=== PATIENT | female | born 1960 | race Hispanic/Latino ===

== ENCOUNTER 2019-01-13 09:16 | Emergency (ER) | payer BC ==
[2019-01-13 10:12] LABS: Absolute Monocytes 0.8 K/uL (0.1-1.3); Absolute Neutrophil 5.7 K/uL (1.8-8.0); Basophils % 0.5 % (0-1.3); Eosinophils % 0.5 % (0-4.4); Hematocrit 44.7 % (36.0-45.0); Lymphocytes % 23.8 % (15.3-44.8); MPV 9.6 fL (7.6-11.3); Monocytes % 9.4 % (3.3-12.3); RBC Red Blood Cell Count 4.76 M/uL (3.86-4.86)
[2019-01-13 10:16] LABS: Protime INR 1.03
[2019-01-13 10:38] LABS: ALT/SGPT 35 U/L (12-78); AST/SGOT 14 U/L (15-37); Albumin 3.9 g/dL (3.4-5.0); Alkaline Phosphatase 96 U/L (45-117); BUN Blood Urea Nitrogen 15 mg/dL (7-18); Bicarbonate 29 mmol/L (21-32); Bilirubin Direct 0.2 mg/dL (0-0.2); Bilirubin Total 0.5 mg/dL (0.2-1.0); Glucose Level 116 mg/dL (74-106); Magnesium 2.2 mg/dL (1.8-2.4); NT PRO-BNP 254 pg/mL (<125); Potassium 3.6 mmol/L (3.5-5.1); Protein, Total 7.3 g/dL (6.4-8.2); Sodium Level 143 mmol/L (136-145); Troponin (Emerg Dept Use Only) < 0.02 ng/mL (0.0-0.045)
--- NOTE | 2019-01-13 10:41 | RAD REPORT ---
EXAM DESCRIPTION: Taisha Single View01/13/2019 10:30 am CLINICAL HISTORY: Palpitations and hypertension COMPARISON: 2016 FINDINGS: The lungs appear clear of acute infiltrate. The heart is borderline enlarged. The aorta i s tortuous/ectatic IMPRESSION: No acute abnormalities displayed
--- NOTE | 2019-01-13 11:35 | EDPHYS ---
Physician Documentation [facility] Name: Kevin Gary Age: 58 yrs Sex: Female : 1960 Arrival Date: 01/13/2019 Time: 09:23 Bed 5 Private MD: ED Physician Andreas Jefferson HPI: 01/13 10:00 This 58 yrs old Female presents to ER via Ambulatory with complaints of High pm1 Blood Pressure. 10:00 The patient presents with a history of heart racing. Context: The symptoms occur at pm1 rest. Onset: The symptoms/episode began/occurred 1 month(s) ago. Duration: The patient or guardian reports multiple episodes, typically experiences palpitations in the AM. Modifying factors: The symptoms are aggravated by nothing. The symptoms are alleviated by nothing. Associated signs and symptoms: Pertinent negatives: chest pain, cough, fever, nausea, SOB, syncope, near-syncope, vomiting. Severity of symptoms: Pain is currently a 0 / 10. The patient has not recently seen a physician. Historical: - Allergies: 09:37 No Known Allergies; ss - Home Meds: 09:37 pravastatin 20 mg oral tab 1 tab once daily [Active]; metoprolol tartrate 50 mg Oral ss tab 1 tab once daily [Active]; prednisone 20 mg Oral tab once daily [Active]; - PMHx: 09:37 Hypertension; ss - PSHx: 09:37 hemorrhoid sx; bone spur removed from left foot; ss - Immunization history:: Adult Immunizations up to date. - Social history:: Smoking status: Patient/guardian denies using tobacco. - Ebola Screening: : Patient denies exposure to infectious person Patient denies travel to an Ebola-affected area in the 21 days before illness onset. ROS: 10:00 Constitutional: Negative for fever, chills, and weight loss, Eyes: Negative for injury, pm1 pain, redness, and discharge, ENT: Negative for injury, pain, and discharge, Neck: Negative for injury, pain, and swelling. 10:00 Respiratory: Negative for shortness of breath, cough, wheezing, and pleuritic chest pain, Abdomen/GI: Negative for abdominal pain, nausea, vomiting, diarrhea, and constipation, Back: Negative for injury and pain, : Negative for injury, bleeding, discharge, and swelling, MS/Extremity: Negative for injury and deformity, Skin: Negative for injury, rash, and discoloration, Neuro: Negative for headache, weakness, numbness, tingling, and seizure. 10:00 Cardiovascular: Positive for palpitations, Negative for chest pain, edema, orthopnea. Exam: 10:00 Sinus tachycardia 103 BPM pm1 10:00 Constitutional: This is a well developed, well nourished patient who is awake, alert, pm1 and in no acute distress. Head/Face: Normocephalic, atraumatic. Eyes: Pupils equal round and reactive to light, extra-ocular motions intact. Lids and lashes normal. Conjunctiva and sclera are non-icteric and not injected. Cornea within normal limits. Periorbital areas with no swelling, redness, or edema. ENT: Nares patent. No nasal discharge, no septal abnormalities noted. Tympanic membranes are normal and external auditory canals are clear. Oropharynx with no redness, swelling, or masses, exudates, or evidence of obstruction, uvula midline. Mucous membranes moist. Neck: Trachea midline, no thyromegaly or masses palpated, and no cervical lymphadenopathy. Supple, full range of motion without nuchal rigidity, or vertebral point tenderness. No Meningismus. Chest/axilla: Normal chest wall appearance and motion. Nontender with no deformity. No lesions are appreciated. Cardiovascular: Regular rate and rhythm with a normal S1 and S2. No gallops, murmurs, or rubs. Normal PMI, no JVD. No pulse deficits. Respiratory: Lungs have equal breath sounds bilaterally, clear to auscultation and percussion. No rales, rhonchi or wheezes noted. No increased work of breathing, no retractions or nasal flaring. Abdomen/GI: Soft, non-tender, with normal bowel sounds. No distension or tympany. No guarding or rebound. No evidence of tenderness throughout. Back: No spinal tenderness. No costovertebral tenderness. Full range of motion. Skin: Warm, dry with normal turgor. Normal color with no rashes, no lesions, and no evidence of cellulitis. MS/ Extremity: Pulses equal, no cyanosis. Neurovascular intact. Full, normal range of motion. 10:00 Neuro: Orientation: is normal, Motor: is normal, moves all fours. Vital Signs: 09:37 BP 154 / 83; Pulse 116; Resp 20; Temp 98.3(O); Pulse Ox 95% on R/A; Weight 93.89 kg; ss Height 5 ft. 2 in. (157.48 cm); Pain 0/10; 11:16 BP 120 / 84; Pulse 93; Resp 16 S; Pulse Ox 96% on R/A; jl7 09:37 Body Mass Index 37.86 (93.89 kg, 157.48 cm) ss MDM: 09:49 Patient medically screened. pm1 11:33 Data reviewed: vital signs. Data interpreted: Pulse oximetry: on room air is 96 %. pm1 Interpretation: normal. Counseling: I had a detailed discussion with the patient and/or guardian regarding: the historical points, exam findings, and any diagnostic results supporting the discharge/admit diagnosis, lab results, radiology results, the need for outpatient follow up, a marketing data specialist, evaluation of palpitations and further management of blood pressure as needed, to return to the emergency department if symptoms worsen or persist or if there are any questions or concerns that arise at home. 01/13 09:55 Order name: Basic Metabolic Panel pm1 01/13 09:55 Order name: CBC with Diff pm1 01/13 09:55 Order name: LFT's; Complete Time: 10:40 pm1 01/13 09:55 Order name: Magnesium; Complete Time: 10:40 pm01/13 09:55 Order name: NT PRO-BNP; Complete Time: 10:40 pm1 01/13 09:55 Order name: PT-INR; Complete Time: 10:24 pm1 01/13 09:35 Order name: EKG; Complete Time: 09:35 ss 01/13 09:35 Order name: EKG - Nurse/Tech; Complete Time: 10:14 ss 01/13 09:55 Order name: Troponin (emerg Dept Use Only); Complete Time: 10:40 pm1 01/13 09:55 Order name: XRAY Chest (1 view); Complete Time: 10:42 pm01/13 09:55 Order name: Cardiac monitoring; Complete Time: 10:13 pm1 01/13 09:55 Order name: TSH; Complete Time: 10:40 pm1 01/13 09:56 Order name: Basic Metabolic Panel; Complete Time: 10:40 EDMS 01/13 09:56 Order name: CBC with Automated Diff; Complete Time: 10:24 [facility] 01/13 09:55 Order name: IV Saline Lock; Complete Time: 10:14 pm1 01/13 09:55 Order name: Labs collected and sent; Complete Time: 10:14 pm1 01/13 09:55 Order name: O2 Per Protocol; Complete Time: 10:14 pm1 01/13 09:55 Order name: O2 Sat Monitoring; Complete Time: 10:14 pm1 Administered Medications: No medications were administered Disposition: 13:16 Co-signature as Attending Physician, Andreas Jefferson MD I agree with the assessment and kdr plan of care. Disposition: 01/13/19 11:35 Discharged to Home. Impression: Palpitations, Essential (primary) hypertension. - Condition is Stable. - Discharge Instructions: Hypertension, Palpitations, How to Take Your Blood Pressure, [id number], DASH Eating Plan, Managing Your Hypertension. - Medication Reconciliation Form, Thank You Letter, Antibiotic Education, Prescription Opioid Use form. - Follow up: Emergency Department; When: As needed; Reason: Worsening of condition. Follow up: Private Physician; When: 2 - 3 days; Reason: Recheck today's complaints, Continuance of care, Re-evaluation by your physician. - Problem is new. - Symptoms have improved. Signatures: Dispatcher [employer] [facility] Andreas Jefferson MD MD kdr Erica De Oliveira RN RN ss Phoenix Jolley, VICE PRESIDENT INVESTOR RELATIONS VICE PRESIDENT INVESTOR RELATIONS pm1 Corrections: (The following items were deleted from the chart) 11:59 11:35 01/13/2019 11:35 Discharged to Home. Impression: Palpitations; Essential ss (primary) hypertension. Condition is Stable. Forms are Medication Reconciliation Form, Thank You Letter, Antibiotic Education, Prescription Opioid Use. Follow up: Emergency Department; When: As needed; Reason: Worsening of condition. Follow up: Private Physician; When: 2 - 3 days; Reason: Recheck today's complaints, Continuance of care, Re-evaluation by your physician. Problem is new. Symptoms have improved. pm1
--- NOTE | 2019-01-13 11:35 | ER ---
Nurse's Notes [facility] Name: Kevin Gary Age: 58 yrs Sex: Female : 1960 Arrival Date: 01/13/2019 Time: 09:23 Bed 5 Private MD: Diagnosis: Palpitations;Essential (primary) hypertension Presentation: 01/13 09:35 Presenting complaint: Patient states: High blood pressure and intermittent palpitations ss x 1 month. Transition of care: patient was not received from another setting of care. Onset of symptoms was November 2018. Risk Assessment: Do you want to hurt yourself or someone else? Patient reports no desire to harm self or others. Initial Sepsis Screen: Does the patient meet any 2 criteria? No. Patient's initial sepsis screen is negative. Does the patient have a suspected source of infection? No. Patient's initial sepsis screen is negative. Care prior to arrival: None. 09:35 Method Of Arrival: Ambulatory ss 09:35 Acuity: BOAZ 2 ss Historical: - Allergies: 09:37 No Known Allergies; ss - Home Meds: 09:37 pravastatin 20 mg oral tab 1 tab once daily [Active]; metoprolol tartrate 50 mg Oral ss tab 1 tab once daily [Active]; prednisone 20 mg Oral tab once daily [Active]; - PMHx: 09:37 Hypertension; ss - PSHx: 09:37 hemorrhoid sx; bone spur removed from left foot; ss - Immunization history:: Adult Immunizations up to date. - Social history:: Smoking status: Patient/guardian denies using tobacco. - Ebola Screening: : Patient denies exposure to infectious person Patient denies travel to an Ebola-affected area in the 21 days before illness onset. Screenin:00 Abuse screen: Denies threats or abuse. Denies injuries from another. Nutritional jl7 screening: No deficits noted. Tuberculosis screening: No symptoms or risk factors identified. Fall Risk IV access (20 points). Total Ashby Fall Scale indicates No Risk (0-24 pts). Assessment: 09:55 General: Appears in no apparent distress. uncomfortable, Behavior is calm, appropriate jl7 for age. Pain: Denies pain. Neuro: Level of Consciousness is awake, alert, obeys commands, Oriented to person, place, time. Cardiovascular: Reports palpitations, Heart tones S1 S2 present Patient's skin is warm and dry. Chest pain is denied. Respiratory: Airway is patent Respiratory effort is even, unlabored, Respiratory pattern is regular, symmetrical, Denies shortness of breath. GI: No signs and/or symptoms were reported involving the gastrointestinal system. Patient currently denies diarrhea, nausea, vomiting. : No signs and/or symptoms were reported regarding the genitourinary system. EENT: No signs and/or symptoms were reported regarding the EENT system. Derm: Skin is pink, warm \T\ dry. 11:00 Reassessment: Patient appears in no apparent distress at this time. No changes from jl7 previously documented assessment. Patient and/or family updated on plan of care and expected duration. Pain level reassessed. Patient is alert, oriented x 3, equal unlabored respirations, skin warm/dry/pink. Vital Signs: 09:37 BP 154 / 83; Pulse 116; Resp 20; Temp 98.3(O); Pulse Ox 95% on R/A; Weight 93.89 kg; Height 5 ft. 2 in. (157.48 cm); Pain 0/10; 11:16 BP 120 / 84; Pulse 93; Resp 16 S; Pulse Ox 96% on R/A; jl7 09:37 Body Mass Index 37.86 (93.89 kg, 157.48 cm) ED Course: 09:23 Patient arrived in ED. as 09:36 Triage completed. ss 09:37 Phoenix Jolley NP is PHCP. pm1 09:37 Andreas Jefferson MD is Attending Physician. pm1 09:37 Arm band placed on right wrist. ss 09:38 Antonia Emery RN is Primary Nurse. jl7 09:54 Inserted saline lock: 20 gauge in right antecubital area, using aseptic technique. pc1 10:00 Patient has correct armband on for positive identification. Placed in gown. Bed in low jl7 position. Call light in reach. Side rails up X 1. nuclear monitoring technician on. Pulse ox on. NIBP on. 10:00 Initial lab(s) drawn, by wv, sent to lab. Inserted saline lock: 20 gauge in left jl7 antecubital area, using aseptic technique. Blood collected. 10:04 EKG done, by technician. reviewed by Phoenix Marinas MAIL RIDER. at1 10:19 X-ray completed. Portable x-ray completed in exam room. Patient tolerated procedure jb2 well. 10:21 XRAY Chest (1 view) In Process Unspecified. EDMS 11:59 No provider procedures requiring assistance completed. IV discontinued, intact, ss bleeding controlled, No redness/swelling at site. Pressure dressing applied. Administered Medications: No medications were administered Outcome: 11:35 Discharge ordered by MD. pm1 11:59 Discharged to home ambulatory. ss 11:59 Condition: good 11:59 Discharge instructions given to patient, family, Instructed on discharge instructions, follow up and referral plans. medication usage, Demonstrated understanding of instructions, follow-up care, medications. 11:59 Patient left the ED. ss Signatures: Dispatcher [employer] EDGA Bala Montano jb2 Luciana Torres Shelby, RN RN ss Katalina Real, perfect binder operator EKG Tat1 Phoenix Jolley, HARISH MAIL RIDER pm1 Antonia Emery RN RN jl7 Phoenix Rosado pc1
--- NOTE | 2019-01-13 12:43 | EKG ---
Test Date: 2019-01-13 Test Time: 09:57:59 Senior Product Analyst: TAYLOR MEASUREMENT RESULTS: Intervals: Rate: 103 MA: 146 QRSD: 80 QT: 340 QTc: 445 [place]: P: 63 MA: 146 QRS: 33 T: 36 INTERPRETIVE STATEMENTS: Sinus tachycardia Otherwise normal ECG Compared to ECG 12/01/2015 20:31:20 Sinus rhythm no longer present Electronically Signed On 01-13-19 12:42:13 CDT by Parish Atkins
== END 2019-01-13 11:59 | disposition home or self-care (01) ==
LOC: ER 09:16
DX: R00.2 Palpitations (principal); I10 Essential (primary) hypertension
CPT/HCPCS: 36415; 71045; 80048; 80076; 83735; 83880; 84443; 84484; 85025; 85610; 93005; 99284